=== PATIENT | female | born 1945 | race Caucasian/White ===

== ENCOUNTER → 2017-04-20 | Outpatient (CLI) | payer MEDICARE ==
[~2017-04-20] MED LIST: ACCUPRIL20 MG PO; ADVAIR DISKUS 21 DSK IH; AMOXIL500 MG PO; BENTYL20 MG PO; CARBATROL100 MG PO; CARDIZEM60 MG PO; CIPRO500 MG PO; CLARITIN10 MG PO; COLACE100 MG PO; EPI-PEN1 MG/ML SC; GUAIFENESIN DM PO; IBU-6600 MG PO; MIRALAX17 GM/PACK PO; MULTIVITAMIN1 TA1 PO; MULTIVITAMIN1 TAB PO; PERCOCET 325 MG1 TA2 PO; PROTONIX40 MG PO; Phenergan25 MG PO; Quinapril10 MG PO; REGLAN PO; SPIRIVA18 MCG IH; TRAMADOL HCL50 MG PO; VENTOLIN 02.5 MG/3 M INH; VENTOLIN H0.09 MG/AC PO; VITAMIN D1000 IU PO; VITAMIN D50000 I2 PO; ZOFRAN ODT4 MG SL
== END | disposition home or self-care (01) ==
LOC: RAD 11:48
DX: M53.3 Sacrococcygeal disorders, not elsewhere classified (principal); Z85.42 Personal history of malignant neoplasm of other parts of uterus; Z85.118 Personal history of other malignant neoplasm of bronchus and lung; Z85.828 Personal history of other malignant neoplasm of skin; Z85.841 Personal history of malignant neoplasm of brain

== ENCOUNTER → 2017-08-15 | Outpatient (CLI) | payer MEDICARE | END | disposition home or self-care (01) | LOC: MAMMO 06-18 12:00 | DX: Z12.31 Encounter for screening mammogram for malignant neoplasm of breast (principal) ==

== ENCOUNTER → 2017-12-17 | Outpatient (CLI) | payer MEDICARE ==
[2017-12-17 11:13] LABS: BASO % 0.2 % (0.0-1.0); EOS # 0.1 10*3/uL (0.0-0.4); EOS % 0.6 % (1.0-4.0); HEMATOCRIT 48.1 % (37.0-47.0); LYMPH # 1.2 10*3/uL (1.3-4.4); LYMPH % 11.8 % (27.0-41.0); MEAN CELL VOLUME 91.6 fl (81.0-99.0); MEAN CORPUSCULAR HGB 30.5 pg (27.0-31.0); MEAN CORPUSCULAR HGB CONC 33.3 g/dl (33.0-37.0); MEAN PLATELET VOLUME 9.3 fl (9.6-12.3); MONO # 0.9 10*3/uL (0.1-1.0); MONO % 8.5 % (3.0-9.0); NEUT # 7.9 10*3/uL (2.3-7.9); NEUT % 78.3 % (47.0-73.0); PLATELET COUNT AUTOMATED 280 10*3/uL (130-400); RED BLOOD COUNT 5.25 10*6/uL (4.10-5.10); RED CELL DISTRI WIDTH 13.6 % (0-14.5)
[2017-12-17 11:39] LABS: ALBUMIN 3.3 gm/dl (3.1-4.5); BUN 13 mg/dl (7-24); CHLORIDE 102 mmol/L (98-107); CREATININE 0.84 mg/dL (0.55-1.02); POTASSIUM 3.5 mmol/L (3.5-5.1); SGOT/AST 22 IU/L (3-35); SGPT/ALT 44 U/L (12-78); SODIUM 141 mmol/L (136-145)
[2017-12-17 11:49] LABS: ALKALINE PHOSPHATASE 94 U/L (45-117)
[2017-12-17 12:38] LABS: VITAMIN D, 25-HYDROXY 21.4 ng/mL (30-100)
== END | disposition home or self-care (01) ==
LOC: LAB 10:25 → RAD 11:00
PROVIDERS: Internal Medicine
DX: Z13.820 Encounter for screening for osteoporosis (principal); G50.0 Trigeminal neuralgia; I10 Essential (primary) hypertension; E55.9 Vitamin D deficiency, unspecified; E53.8 Deficiency of other specified B group vitamins; Z78.0 Asymptomatic menopausal state; Z90.710 Acquired absence of both cervix and uterus; Z85.038 Personal history of other malignant neoplasm of large intestine; Z85.118 Personal history of other malignant neoplasm of bronchus and lung

== ENCOUNTER → 2018-04-26 | Outpatient (CLI) | payer MEDICARE ==
[2018-04-26 10:01] LABS: CREATININE 0.88 mg/dL (0.55-1.02)
== END | disposition home or self-care (01) ==
LOC: LAB 01:13 → MRI 01:13
PROVIDERS: Radiology Diagnostic Radiology
DX: D32.0 Benign neoplasm of cerebral meninges (principal); G44.1 Vascular headache, not elsewhere classified; G50.0 Trigeminal neuralgia

== ENCOUNTER → 2018-08-21 | Outpatient (CLI) | payer MEDICARE | END | disposition home or self-care (01) | LOC: MAMMO 08-06 15:16 | DX: Z12.31 Encounter for screening mammogram for malignant neoplasm of breast (principal) ==

== ENCOUNTER 2019-02-28 07:07 | Inpatient (IN) | payer MEDICARE, OTHER ==
[2019-02-25 09:58] VITALS: BP 138/56
[2019-02-28] VITALS (7 sets, daily range): BP systolic 92–149; BP diastolic 42–91
[~2019-02-28] VITALS: Ht 165.1 cm; Wt 70.6 kg
--- NOTE | ~2019-02-28 | PR ---
[place], [place] PROGRESS NOTE NAME: JAVAN ZARATE UNIT #: [id number] ROOM: 403 DOCTOR: MATT BONILLA MD BIRTHDATE: [birth year] DOS: 03/02/2019 PULMONARY PROGRESS NOTE SUBJECTIVE: The patient was noted comfortable at this time with gradual reduction of the cough. The shortness of breath has been improving. The patient was noted quite forgetful at this time and could not remember all the information that was asked. OBJECTIVE: VITAL SIGNS: Normal temperature, respiratory rate is 18, heart rate is 95, blood pressure is 119/61. Pulse oxygen saturation on 2 liters nasal cannula is 93% saturation. HEENT: Examination shows head was atraumatic. Eyes nonicterus. NECK: Supple. CARDIOVASCULAR SYSTEM: S1, S2 is audible. LUNGS: The patient was noted with still crackles and rhonchorous breathing in the left lower lung. There was no wheezing. ABDOMEN: Soft, nontender. Bowel sounds present. EXTREMITIES: The patient was noted without any acute edema, clubbing, or cyanosis. LABORATORY DATA: Culture of the bronchial washing was noted light growth of Klebsiella pneumoniae, which noted pansensitive organism. IMPRESSION: 1. The patient has been currently noted with acute tracheobronchitis, mucus impaction with exacerbation of chronic obstructive pulmonary disease. 2. History of lung cancer. PLAN OF THERAPY: Continuation of current plan of management at this time as in progress. Usual care, other supportive plan of treatment and therapies. The patient could not remember the exact allergy to the antibiotics, but LISTED ALLERGIES TO THE ZITHROMAX, LEVAQUIN, AND PENICILLIN. THE ONLY ANTIBIOTIC ALLERGY SHE REMEMBERED WAS PENICILLIN. Based on the current information, the patient was given a trial of IV Rocephin 1 gram today if no adverse reaction, could be considered home discharge on oral medications tomorrow on cephalosporins. Discontinue the vancomycin and IV Merrem. THE ALLERGY TO PENICILLIN REPORTED WAS JUST A SKIN RASH. [place], [place] PROGRESS NOTE NAME: JAVAN ZARATE UNIT #: [id number] ROOM: 403 DOCTOR: MATT BONILLA MD BIRTHDATE: [birth year] MATT HOFFMANN MD CM:PNTRANS [phone] MATT ARRIETA MD 03/03/19228 interface
--- NOTE | ~2019-02-28 | PROC NOTE ---
[place], [place] PROCEDURE NOTE NAME: JAVAN ZARATE UNIT #: [id number] ROOM: 403 DOCTOR: MATT BONILLA MD BIRTHDATE: [birth year] DOS: 02/28/2019 PROCEDURE: Bronchoscopy. PREOPERATIVE DIAGNOSES: The bronchoscopy done as an outpatient for the assessment of nonresolving cough with abnormal CT chest with a severe mucus impaction in the major airways. POSTOPERATIVE DIAGNOSES: The patient with severe purulent tracheobronchitis was also noted ongoing with severe inflammatory changes of the airway with a friable mucosa. COMPLICATIONS: None. PROCEDURE DESCRIPTION: Informed consent obtained for the patient. The patient brought to the OR and placed in the supine position. Conscious sedation administered by the Anesthesia Department. After achieving proper sedation, the airway introduced into the mouth. Bronchoscope advanced through the airway into laryngeal area. Epiglottis and vocal cords were seen. Vocal cord moving symmetrical movements. Bronchoscope advanced to the vocal cords into the tracheal lumen. The tracheal lumen was identified. Tracheal lumen was seen and noted full of thick green purulent secretion starting after the vocal cord throughout the tracheal lumen. Secretions suctioned out. Hollie noted sharp. Right upper, right middle, right lower, left upper, and lingular lobe was seen. The patient noted with similar secretions has present in the tracheal lumen in the endobronchial tree bilaterally, greater on the left than the right side with severe friability of mucosa easy to bleed with the touch of the scope. The secretions cleared out from the endobronchial tree successfully without difficulty. No endobronchial obstructive lesions were seen. The procedure was completed without any complication. After the bronchoscopy, the patient was decided to be admitted to the hospital because of severe ongoing acute tracheobronchitis with COPD and further medical management to be continued accordingly. The postoperative findings were discussed with the patient in the recovery room as the patient recovered the effects of acute sedation and with the as well in the recovery room. The patient and both were agreeable for admission to the hospital. Case was discussed with Dr. Pugh for inpatient hospitalization for further care. [place], [place] PROCEDURE NOTE NAME: JAVAN ZARATE UNIT #: [id number] ROOM: 403 DOCTOR: MATT BONILLA MD BIRTHDATE: [birth year] MATT HOFFMANN MD CM:YAZMIN:PROCEDURE NOTE [id number] MATT ARRIETA MD
--- NOTE | ~2019-02-28 | CON ---
[place], [place] REPORT OF CONSULTATION NAME: JAVAN ZARATE UNIT #: [id number] ROOM: 403 DOCTOR: MATT BONILLA MD BIRTHDATE: [birth year] DOS: 02/28/2019 PULMONARY CONSULTATION, EVALUATION, AND MANAGEMENT HISTORY OF PRESENT ILLNESS: This is a 73-year-old white female patient, seen in my office on 02/24/2019 on recommendation of her medical oncologist from [facility] for assessment of abnormal CT scan of the chest. The patient had abnormal CT scan of the chest completed recently. She brought me the copy, reviewed as well. The patient reported having symptoms of ongoing productive and nonproductive cough as well as shortness of breath occurring with exertion and progressive fatigue. The patient's symptoms have been noted worsening and not resolving. Denies symptoms of chest pain. The patient has been assessed and review of CT scan was performed. She has been noted with findings consistent with severe COPD from a pulmonary function testing done at the [facility] and performed in the office as well as well as severe mucus impaction noted in the left lower lung with mucocele formation. The patient was advised bronchoscopy that was completed today. The bronchoscopy done was noted with severe ongoing purulent tracheobronchitis with copious amount of secretion removed from endobronchial tree. The patient was then brought to the hospital. The patient was admitted to the hospital for further care at this time. The patient has expectorated small amount of sputum, which was mixed with bloody secretion after the bronchoscopy. Denies any symptoms of chest pain. Shortness of breath occurs with exertion. Denies symptoms of wheezing at the present time. REVIEW OF SYSTEMS: CONSTITUTIONAL: Fatigue and tiredness reported. Denies symptoms of fever or chills. EYES: Denies any burning, redness, or tenderness. EARS, NOSE, THROAT SYMPTOMS: Denies sore throat, hoarseness, otalgia, postnasal drainage or epistaxis. CARDIOVASCULAR: Denies anginal pain, edema or pain of lower extremities. GASTROINTESTINAL: Denies dysphagia, nausea, vomiting, diarrhea, abdominal pain, hematemesis, melena, or hematochezia. SKIN: Denies abnormal lesions or rashes. CENTRAL NERVOUS SYSTEM: Denies dizziness, headache, diplopia, syncopal episodes. Remaining systems were reviewed, they were noted all negative. PAST MEDICAL HISTORY: 1. Severe COPD. 2. History of lung cancer. 3. History of uterine cancer. 4. History of colon cancer. 5. Allergic rhinitis. 6. Essential hypertension. PAST SURGICAL HISTORY: 1. Left lower lobectomy that was done in 2004. [place], [place] REPORT OF CONSULTATION NAME: JAVAN ZARATE UNIT #: [id number] ROOM: 403 [facility] [birth year] 2. Ablation treatment for the right lung nodule in May 2016. 3. Complete hysterectomy in 1977. 4. Mediastinoscopy. 5. Laparoscopic cholecystectomy. 6. Left knee arthroscopy. 7. Bilateral oophorectomy. 8. Partial colectomy with chemotherapy in 2012. SOCIAL HISTORY: The patient is . She has 2 children. She lives at home. Denies history of alcohol use or illicit drug use. Tobacco use known from the age of [age] years old, one pack of cigarettes, until 2004. FAMILY HISTORY: The patient's father at the age of 51 years from complication of aspergillosis. Mother at the age of 90 years from natural causes. HOME MEDICATIONS: Noted as Flonase, Incruse Ellipta, Singulair, Advair, cetirizine, Ventolin, and albuterol sulfate nebulizer. DRUG ALLERGIES: THE PATIENT WAS NOTED ALLERGIC TO: 1. PENICILLIN. 2. ERYTHROMYCIN. 3. LEVAQUIN. PHYSICAL EXAMINATION: GENERAL: A 73-year-old female patient, currently noted to be awake and alert without any distress. Height of 5 feet 5 inches, weight of 155 pounds, BMI is 25. VITAL SIGNS: Normal temperature, respiratory rate of 18-24, heart rate 82-77, blood pressure 110/42 to 141/50. Pulse oxygen saturation at rest on room air was 90%, on 2 liters was 96% saturation. HEENT: Head was atraumatic, eyes nonicterus. NECK: Supple. CARDIOVASCULAR: S1 and S2 audible. LUNGS: The patient with decreased breath sounds and occasional wheezing. No crackles except at the left lung base. ABDOMEN: Soft, nontender. Bowel sounds present. EXTREMITIES: Without any acute edema. MUSCULOSKELETAL: Without acute deformities. CENTRAL NERVOUS SYSTEM: Cranial nerves 2-12 intact. LABORATORY AND DIAGNOSTIC DATA: CBC today: WBC count 6.8, hemoglobin and hematocrit normal, platelet count normal. CMP of this morning, normal BUN and creatinine, CO2 was 35. Chest x-ray shows hyperinflation of the lungs, volume loss on the left side from back surgery, hyperinflation of the right lung which is compensatory, and expanded right upper lobe was seen. Lactic acid was 0.7. IMPRESSION: 1. The patient has been currently admitted to the hospital, noted with severe acute purulent tracheobronchitis with mucus impaction, status post bronchoscopy. [place], [place] REPORT OF CONSULTATION NAME: JAVAN ZARATE UNIT #: [id number] ROOM: 403 DOCTOR: SHUN ARRIETA MD,MATT BIRTHDATE: [birth year] 2. Acute exacerbation of chronic obstructive pulmonary disease, which was noted as well. 3. Metabolic alkalosis with chronic hypercarbia. 4. History of three different cancers known including lung cancer which has been treated with surgery and ablation treatment. The patient also has known history of uterine cancer, treated with surgery. The patient had cancer of the colon with colectomy, which was partial, and treated with chemotherapy subsequently in 2012. PLAN OF MANAGEMENT: The patient will be started on antibiotics intravenously at this time until the culture results will be known. She will be given intravenous Merrem until the culture results will be known. Bronchodilator will be continued and oxygen supplementation as well. Bronchodilator and other treatment changes will be made for this patient based on the progression of the illness. Usual care. Supportive care and plan of management as in progress. Additional treatment changes will be ordered based on the progression of the illness. Thanks for allowing me to participate in the care of this patient. MATT HOFFMANN MD CM:CONSTR:REPORT OF CONSULTATION 1321 03/01/19 0607 interface
--- NOTE | ~2019-02-28 | PR ---
[place], [place] PROGRESS NOTE NAME: JAVAN ZARATE UNIT #: [id number] ROOM: 403 DOCTOR: SHUN ARRIETA MD,MATT BIRTHDATE: [birth year] DOS: 03/03/2019 PULMONARY PROGRESS NOTE SUBJECTIVE: The patient was noted comfortable at this time without any acute distress. Coughing has been subsiding. There were no symptoms of fever or chills reported. Shortness of breath has been improving. OBJECTIVE: VITAL SIGNS: The vital signs of the patient, which were recorded shows normal temperature, respiratory rate is 16, heart rate is 88, blood pressure is 124/64, and pulse oxygen saturation was recorded as 97% on 2 liters nasal cannula. HEENT: Examination shows head was atraumatic. Eyes nonicterus. NECK: Supple. CARDIOVASCULAR SYSTEM: S1, S2 is audible. LUNGS: Noted without any wheeze or crackles. The breaths are noted decreased in the left lower lung. ABDOMEN: Soft, nontender. Bowel sounds present. EXTREMITIES: No acute change. IMPRESSION: 1. Resolving acute tracheobronchitis. 2. Klebsiella pneumonia, received the IV Rocephin yesterday without any side effects. 3. The patient with acute exacerbation of chronic obstructive pulmonary disease as well. 4. Past history of lung cancer. PLAN OF TREATMENT: Switching the patient to oral cephalosporin for discharge for 10 days. She could receive Ceftin 500 mg p.o. b.i.d. She needs to be assessed for home oxygen need and to be prescribed in case of hypoxia determined. Outpatient followup is suggested 2 weeks post-discharge. MATT HOFFMANN MD CM:PNTRANS [id number] MATT ARRIETA MD 03/03/19 2342 interface
--- NOTE | ~2019-02-28 | EKG ---
[place], [place] ELECTROCARDIOGRAM REPORT NAME: JAVAN ZARATE UNIT #: [id number] ROOM: 403 DOCTOR: ROSIO DRAFT REPORT BIRTHDATE: [birth year] [facility] Test Date: 2019-02-28 Test Time: 12:41:18 Pat Name: JAVAN ZARATE Department: Room: 403 2 Gender: F [employer] Analyst: VERA : 1945 Requested By: ANTONIETA RABAGO Order Number: [id number] Reading MD: Baljeet John MD Measurements Intervals [place] Rate: 84 P: 81 MT: 158 QRS: 29 QRSD: 102 T: -64 QT: 369 QTc: 437 Interpretive Statements Sinus rhythm Probable LVH with secondary repol abnrm Inferior infarct, age indeterminate Anterior Q waves, possibly due to LVH Electronically Signed On 03-02-2019 17:38:19 PDT by Baljeet John MD CM:EKGRPT:ELECTROCARDIOGRAM REPORT [id number] ANTONIETA CACERES DRAFT REPORT ANTONIETA RABAGO DO
--- NOTE | ~2019-02-28 | PR ---
[place], [place] PROGRESS NOTE NAME: JAVAN ZARATE UNIT #: [id number] ROOM: 403 DOCTOR: SHUN ARRIETA MD,MATT BIRTHDATE: [birth year] DOS: 03/01/2019 PULMONARY PROGRESS NOTE SUBJECTIVE: The patient noted comfortable at this time, resting on the bed this morning. Still noted the coughing. The patient's chest congestion was noted decreased from previous assessment of yesterday. Denies symptoms of acute hemoptysis. Denies symptoms of fever or chills. Denies symptoms of nausea and vomiting. Continue broad-spectrum intravenous antibiotic as well with suspected severe tracheobronchitis, which was bacterial. The patient's energy level noted somewhat better in the last 24 hours, using oxygen supplementation this morning of assessment. Denies any symptoms of abdominal pain, nausea, vomiting, or diarrhea. Remaining systems were reviewed and they were noted all negative. PHYSICAL EXAMINATION: VITAL SIGNS: Normal temperature, respiratory rate of 18, heart rate of 91, and blood pressure of 113/56. Pulse ox saturation on 2 liters nasal cannula 96% saturation recorded. HEENT: On examination, no acute change. NECK: Supple. CARDIOVASCULAR SYSTEM: S1, S2 is audible. LUNGS: The patient was noted with decreased breath sounds Crackles was noted. Rhonchorous breathing in the left lower lung. ABDOMEN: Soft, nontender. Bowel sounds present. EXTREMITIES: No acute changes. MUSCULOSKELETAL Without any acute deformity. CENTRAL NERVOUS SYSTEM: Cranial nerves 2-12 intact. LABORATORY DATA : Culture of the bronchial washing noted light growth of gram-negative bacilli, pending identification sensitivities. Gram stain of the bronchial washing yesterday, many white blood cells, few epithelial cells, moderate gram-positive cocci in pairs and chains, and few gram-positive cocci in clusters. Troponins, which were done yesterday were noted all normal. BMP this morning, glucose of 151, BUN of 13, creatinine were normal. LFTs normal. CBC this morning was noted as normal. IMPRESSION: The patient has been currently noted with acute tracheobronchitis, exacerbation of chronic obstructive pulmonary disease was noted with reduction of the respiratory symptoms in the last 24 hours with intravenous antibiotics. Gram-negative infection, preliminary, reported in the culture of the final results, is still pending at the present time. PLAN OF THERAPY: Continuation of the current antibiotics, bronchodilator. No changes in the treatment. Discharge planning based on the culture results. The patient's oral or intravenous antibiotic route to be determined. Continuation of the corticosteroids, current dose, and bronchodilators as well as the oxygen supplementation as needed. Usual care, other supportive plan of management. Additional treatment changes will be made based on the progression of the illness. [place], [place] PROGRESS NOTE NAME: ELLIOTJAVAN NAIMA UNIT #: [id number] ROOM: [facility] DOCTOR: MATT BONILLA MD BIRTHDATE: [birth year] MATT HOFFMANN MD CM:PNTRANS [id number] MATT ARRIETA MD 03/02/19 0627 interface
[~2019-02-28 07:07] MED LIST changes: +INCRUSE ELLI62.5 MCG INH
[2019-02-28 11:26] LABS: BASO % 0.1 % (0.0-1.0); EOS % 0.4 % (1.0-4.0); HEMATOCRIT 43.6 % (37.0-47.0); HEMOGLOBIN 13.4 g/dl (12.0-16.0); LYMPH # 1.1 10*3/uL (1.3-4.4); LYMPH % 15.4 % (27.0-41.0); MEAN CELL VOLUME 94.6 fl (81.0-99.0); MEAN CORPUSCULAR HGB 29.1 pg (27.0-31.0); MEAN CORPUSCULAR HGB CONC 30.7 g/dl (33.0-37.0); MEAN PLATELET VOLUME 9.2 fl (9.6-12.3); MONO # 0.7 10*3/uL (0.1-1.0); MONO % 10.4 % (3.0-9.0); NEUT % 73.4 % (47.0-73.0); PLATELET COUNT AUTOMATED 154 10*3/uL (130-400); RED BLOOD COUNT 4.61 10*6/uL (4.10-5.10); RED CELL DISTRI WIDTH 13.5 % (0-14.5); WHITE BLOOD COUNT 6.8 10*3/uL (4.8-10.8)
[2019-02-28 12:01] LABS: ALBUMIN 2.9 gm/dl (3.1-4.5); ALKALINE PHOSPHATASE 100 U/L (45-117); BUN 11 mg/dl (7-24); CHLORIDE 103 mmol/L (98-107); CREATININE 0.86 mg/dL (0.55-1.02); POTASSIUM 3.8 mmol/L (3.5-5.1); SGOT/AST 13 IU/L (3-35); SGPT/ALT 13 U/L (12-78); SODIUM 141 mmol/L (136-145); TOTAL PROTEIN 7.2 gm/dL (6.4-8.2); TROPONIN I 0.022 ng/ml (<0.045)
[2019-02-28] MEDS ORDERED: CARBAMAZEPINE100 M1 PO (12:33)
[2019-02-28 16:34] LABS: BILIRUBIN NEGATIVE (NEGATIVE); BLOOD NEGATIVE (NEGATIVE); CLARITY CLEAR (CLEAR); COLOR YELLOW (YELLOW); GLUCOSE NEGATIVE (NEGATIVE); KETONE NEGATIVE (NEGATIVE); LEUKO ESTERASE NEGATIVE (NEGATIVE); NITRITE NEGATIVE (NEGATIVE); PH 6.5 (5.0-9.0); SPECIFIC GRAVITY 1.015 (1.005-1.030); UROBILINOGEN 0.2 E.U./dl (0.2-1.0)
[2019-02-28 16:42] LABS: BACTERIA TRACE; MUCOUS 1+; WBC 0-2 wbc/hpf (0-5)
[2019-03-01] VITALS: BP 110/57
[2019-03-01 06:22] LABS: HEMATOCRIT 44.5 % (37.0-47.0); HEMOGLOBIN 13.7 g/dl (12.0-16.0); MEAN CELL VOLUME 95.1 fl (81.0-99.0); MEAN CORPUSCULAR HGB 29.3 pg (27.0-31.0); MEAN CORPUSCULAR HGB CONC 30.8 g/dl (33.0-37.0); PLATELET COUNT AUTOMATED 159 10*3/uL (130-400); RED BLOOD COUNT 4.68 10*6/uL (4.10-5.10); RED CELL DISTRI WIDTH 13.4 % (0-14.5); WHITE BLOOD COUNT 7.9 10*3/uL (4.8-10.8)
[2019-03-01 06:55] LABS: BUN 13 mg/dl (7-24); CHLORIDE 104 mmol/L (98-107); CHOLESTEROL 155 mg/dL (<200); CREATININE 0.86 mg/dL (0.55-1.02); POTASSIUM 4.6 mmol/L (3.5-5.1); SODIUM 139 mmol/L (136-145); TRIGLYCERIDES 37 mg/dl (<150); VLDL CHOLESTEROL 7 mg/dL (6-40)
[2019-03-01 06:56] LABS: HDL CHOLESTEROL 82 mg/dl (40-60); LDL CHOLESTEROL 66 mg/dL (9-159); PHOSPHOROUS 3.7 mg/dL (2.5-4.9)
[2019-03-01 07:17] LABS: ATYPICAL LYMPHS 1 % (0-0); PLATELET SUFFICIENCY NORMAL (NORMAL); TOTAL CELLS COUNTED 100 #CELLS
[2019-03-01 07:40] LABS: VITAMIN D, 25-HYDROXY 35.3 ng/mL (30-100)
[2019-03-01 09:56] VITALS: BP 102/50
[2019-03-01 12:00] VITALS: BP 113/56
[2019-03-01 12:04] LABS: ACID FAST SPEC PROCESSING Concentration (.)
[2019-03-01 16:00] VITALS: BP 112/60
[2019-03-01 20:00] VITALS: BP 109/64
[2019-03-02] VITALS: BP 121/55
[2019-03-02 06:17] LABS: HEMATOCRIT 43.4 % (37.0-47.0); HEMOGLOBIN 13.2 g/dl (12.0-16.0); MEAN CELL VOLUME 95.6 fl (81.0-99.0); MEAN CORPUSCULAR HGB 29.1 pg (27.0-31.0); MEAN CORPUSCULAR HGB CONC 30.4 g/dl (33.0-37.0); MEAN PLATELET VOLUME 9.9 fl (9.6-12.3); PLATELET COUNT AUTOMATED 168 10*3/uL (130-400); RED BLOOD COUNT 4.54 10*6/uL (4.10-5.10); RED CELL DISTRI WIDTH 13.5 % (0-14.5); WHITE BLOOD COUNT 14.5 10*3/uL (4.8-10.8)
[2019-03-02 06:39] LABS: ALBUMIN 2.7 gm/dl (3.1-4.5); ALKALINE PHOSPHATASE 91 U/L (45-117); CHLORIDE 102 mmol/L (98-107); POTASSIUM 4.9 mmol/L (3.5-5.1); SGOT/AST 9 IU/L (3-35); SGPT/ALT 11 U/L (12-78); SODIUM 138 mmol/L (136-145); TOTAL PROTEIN 7.3 gm/dL (6.4-8.2)
[2019-03-02 06:46] LABS: BUN 25 mg/dl (7-24); PLATELET SUFFICIENCY NORMAL (NORMAL); TOTAL CELLS COUNTED 100 #CELLS
[2019-03-02 08:00] VITALS: BP 119/61
[2019-03-02 12:00] VITALS: BP 123/56
[2019-03-02 16:00] VITALS: BP 129/64
[2019-03-02 20:00] VITALS: BP 130/71
[2019-03-03 00:58] VITALS: BP 127/62
[2019-03-03 06:48] LABS: HEMATOCRIT 42.9 % (37.0-47.0); HEMOGLOBIN 13.1 g/dl (12.0-16.0); MEAN CELL VOLUME 94.9 fl (81.0-99.0); MEAN CORPUSCULAR HGB CONC 30.5 g/dl (33.0-37.0); MEAN PLATELET VOLUME 9.8 fl (9.6-12.3); PLATELET COUNT AUTOMATED 181 10*3/uL (130-400); RED BLOOD COUNT 4.52 10*6/uL (4.10-5.10); RED CELL DISTRI WIDTH 13.7 % (0-14.5); WHITE BLOOD COUNT 11.9 10*3/uL (4.8-10.8)
[2019-03-03 07:19] LABS: ALBUMIN 2.6 gm/dl (3.1-4.5); BUN 33 mg/dl (7-24); CHLORIDE 103 mmol/L (98-107); CREATININE 0.96 mg/dL (0.55-1.02); POTASSIUM 4.7 mmol/L (3.5-5.1); SGOT/AST 30 IU/L (3-35); SGPT/ALT 32 U/L (12-78); SODIUM 139 mmol/L (136-145)
[2019-03-03 07:20] LABS: TOTAL CELLS COUNTED 100 #CELLS
[2019-03-03 07:21] LABS: ALKALINE PHOSPHATASE 88 U/L (45-117); PLATELET SUFFICIENCY NORMAL (NORMAL); TOTAL PROTEIN 7.2 gm/dL (6.4-8.2)
[2019-03-03 08:00] VITALS: BP 124/64; BP 126/64
[2019-03-03] MEDS ORDERED: PREDNISONE10 MG PO (10:36)
[2019-03-03] MEDS ORDERED: AMINOPHYLLIN200 MG PO (10:36)
[2019-03-03] MEDS ORDERED: MUCINEX ER600 MG PO (10:36)
[2019-04-07 12:04] LABS: ACID FAST CULTURE Negative (.)
== END 2019-03-03 11:28 | disposition home or self-care (01) | DRG 871 ==
LOC: SDC 07:07 → 4E 09:22
PROVIDERS: Emergency Medicine; Internal Medicine Critical Care Medicine; Student in an Organized Health Care Education/Training Program; ADMIT Internal Medicine
PROC: 0BC98ZZ Extirpation of Matter from Lingula Bronchus, Via Natural or Artificial Opening Endoscopic (ICD-10-PCS; principal; 2019-02-28)
PROC: 0BCB8ZZ Extirpation of Matter from Left Lower Lobe Bronchus, Via Natural or Artificial Opening Endoscopic (ICD-10-PCS; principal; 2019-02-28)
PROC: 0BC18ZZ Extirpation of Matter from Trachea, Via Natural or Artificial Opening Endoscopic (ICD-10-PCS; principal; 2019-02-28)
PROC: 0BC58ZZ Extirpation of Matter from Right Middle Lobe Bronchus, Via Natural or Artificial Opening Endoscopic (ICD-10-PCS; principal; 2019-02-28)
PROC: 0BC78ZZ Extirpation of Matter from Left Main Bronchus, Via Natural or Artificial Opening Endoscopic (ICD-10-PCS; principal; 2019-02-28)
PROC: 0BC48ZZ Extirpation of Matter from Right Upper Lobe Bronchus, Via Natural or Artificial Opening Endoscopic (ICD-10-PCS; principal; 2019-02-28)
PROC: 0BC38ZZ Extirpation of Matter from Right Main Bronchus, Via Natural or Artificial Opening Endoscopic (ICD-10-PCS; principal; 2019-02-28)
PROC: 0BC68ZZ Extirpation of Matter from Right Lower Lobe Bronchus, Via Natural or Artificial Opening Endoscopic (ICD-10-PCS; principal; 2019-02-28)
PROC: 0BC88ZZ Extirpation of Matter from Left Upper Lobe Bronchus, Via Natural or Artificial Opening Endoscopic (ICD-10-PCS; principal; 2019-02-28)
DX: A41.9 Sepsis, unspecified organism (principal); J15.0 Pneumonia due to Klebsiella pneumoniae; E44.0 Moderate protein-calorie malnutrition; J44.1 Chronic obstructive pulmonary disease with (acute) exacerbation; T17.590A Other foreign object in bronchus causing asphyxiation, initial encounter; J96.11 Chronic respiratory failure with hypoxia; E87.3 Alkalosis; J96.12 Chronic respiratory failure with hypercapnia; J20.9 Acute bronchitis, unspecified; I10 Essential (primary) hypertension; X58.XXXA Exposure to other specified factors, initial encounter; Y93.89 Activity, other specified; Y92.89 Other specified places as the place of occurrence of the external cause; Y99.8 Other external cause status; Z87.891 Personal history of nicotine dependence; Z85.118 Personal history of other malignant neoplasm of bronchus and lung; Z92.21 Personal history of antineoplastic chemotherapy; Z92.3 Personal history of irradiation; Z85.038 Personal history of other malignant neoplasm of large intestine; Z90.49 Acquired absence of other specified parts of digestive tract; Z90.722 Acquired absence of ovaries, bilateral; Z83.1 Family history of other infectious and parasitic diseases; Z88.1 Allergy status to other antibiotic agents; Z91.030 Bee allergy status; Z88.0 Allergy status to penicillin; Z91.048 Other nonmedicinal substance allergy status; Z79.899 Other long term (current) drug therapy; Z85.42 Personal history of malignant neoplasm of other parts of uterus; Z90.710 Acquired absence of both cervix and uterus; Z68.25 Body mass index [BMI] 25.0-25.9, adult

== ENCOUNTER → 2019-10-20 | Outpatient (CLI) | payer MEDICARE, OTHER ==
[~2019-10-20] MED LIST changes: +AMINOPHYLLIN200 MG PO; +CARBAMAZEPINE100 M1 PO; +MUCINEX ER600 MG PO; +PREDNISONE10 MG PO
[2019-10-20 11:24] LABS: CREATININE 1.06 mg/dL (0.55-1.02)
== END | disposition home or self-care (01) ==
LOC: LAB 01:03 → MRI 01:03
PROVIDERS: Radiology Diagnostic Radiology
DX: G30.0 Alzheimer's disease with early onset (principal); M79.2 Neuralgia and neuritis, unspecified

== ENCOUNTER → 2020-01-05 | Outpatient (CLI) | payer MEDICARE, OTHER ==
[2020-01-05 11:22] LABS: BASO % 0.2 % (0.0-1.0); EOS # 0.1 10*3/uL (0.0-0.4); EOS % 1.4 % (1.0-4.0); HEMATOCRIT 45.8 % (37.0-47.0); HEMOGLOBIN 13.9 g/dl (12.0-16.0); LYMPH # 1.2 10*3/uL (1.3-4.4); LYMPH % 19.5 % (27.0-41.0); MEAN CELL VOLUME 95.6 fl (81.0-99.0); MEAN CORPUSCULAR HGB CONC 30.3 g/dl (33.0-37.0); MEAN PLATELET VOLUME 9.3 fl (9.6-12.3); MONO # 0.6 10*3/uL (0.1-1.0); MONO % 9.5 % (3.0-9.0); NEUT # 4.4 10*3/uL (2.3-7.9); NEUT % 69.1 % (47.0-73.0); PLATELET COUNT AUTOMATED 204 10*3/uL (130-400); RED BLOOD COUNT 4.79 10*6/uL (4.10-5.10); RED CELL DISTRI WIDTH 13.7 % (0-14.5); WHITE BLOOD COUNT 6.3 10*3/uL (4.8-10.8)
[2020-01-05 11:48] LABS: BUN 16 mg/dl (7-24); CHLORIDE 105 mmol/L (98-107); CREATININE 0.89 mg/dL (0.55-1.02); POTASSIUM 3.9 mmol/L (3.5-5.1); SODIUM 143 mmol/L (136-145)
[2020-01-05 11:54] LABS: ACT PARTIAL THROMBO TIME 28.2 SECONDS (20.0-32.1)
== END | disposition home or self-care (01) ==
LOC: LAB 10:46
DX: G50.0 Trigeminal neuralgia (principal); J98.11 Atelectasis; J98.6 Disorders of diaphragm; Z79.01 Long term (current) use of anticoagulants

== ENCOUNTER → 2020-01-22 | Outpatient (CLI) | payer MEDICARE, OTHER | END | disposition home or self-care (01) | LOC: CARD 00:36 | DX: Z01.810 Encounter for preprocedural cardiovascular examination (principal); I08.3 Combined rheumatic disorders of mitral, aortic and tricuspid valves; R94.31 Abnormal electrocardiogram [ECG] [EKG]; R01.1 Cardiac murmur, unspecified ==

== ENCOUNTER → 2020-02-12 | Outpatient (CLI) | payer MEDICARE, OTHER | END | disposition home or self-care (01) | LOC: LAB 11:56 | DX: R05 Cough (principal) ==

== ENCOUNTER → 2020-07-22 | Outpatient (CLI) | payer MEDICARE, OTHER | END | disposition home or self-care (01) | LOC: LAB 13:41 | PROVIDERS: ATTEND Nurse Practitioner Family | DX: G50.0 Trigeminal neuralgia (principal) ==

== ENCOUNTER → 2020-07-26 | Outpatient (CLI) | payer MEDICARE, OTHER | END | disposition home or self-care (01) | LOC: MAMMO 10:41 | PROVIDERS: ATTEND Nurse Practitioner Family | DX: Z12.31 Encounter for screening mammogram for malignant neoplasm of breast (principal) ==

== ENCOUNTER → 2020-08-09 | Outpatient (CLI) | payer MEDICARE, OTHER ==
[2020-08-09 09:05] LABS: BASO % 0.3 % (0.0-1.0); EOS # 0.1 10*3/uL (0.0-0.4); HEMATOCRIT 47.8 % (37.0-47.0); LYMPH # 1.4 10*3/uL (1.3-4.4); LYMPH % 17.1 % (27.0-41.0); MEAN CELL VOLUME 93.5 fl (81.0-99.0); MEAN CORPUSCULAR HGB 29.4 pg (27.0-31.0); MEAN CORPUSCULAR HGB CONC 31.4 g/dl (33.0-37.0); MEAN PLATELET VOLUME 9.6 fl (9.6-12.3); MONO # 0.8 10*3/uL (0.1-1.0); MONO % 9.4 % (3.0-9.0); NEUT # 5.8 10*3/uL (2.3-7.9); NEUT % 71.8 % (47.0-73.0); PLATELET COUNT AUTOMATED 209 10*3/uL (130-400); RED BLOOD COUNT 5.11 10*6/uL (4.10-5.10); RED CELL DISTRI WIDTH 13.3 % (0-14.5)
[2020-08-09 09:28] LABS: BUN 11 mg/dl (7-24); CHLORIDE 103 mmol/L (98-107); CREATININE 0.95 mg/dL (0.55-1.02); POTASSIUM 3.5 mmol/L (3.5-5.1); SODIUM 139 mmol/L (136-145)
[2020-08-09 09:37] LABS: ACT PARTIAL THROMBO TIME 30.1 SECONDS (20.0-32.1)
== END | disposition home or self-care (01) ==
LOC: LAB 08:25
PROVIDERS: ATTEND Physician Assistant
DX: G50.0 Trigeminal neuralgia (principal); D68.9 Coagulation defect, unspecified

== ENCOUNTER 2020-08-28 08:39 | Emergency (ER) | payer MEDICARE, OTHER ==
[~2020-08-28] VITALS: Ht 165.1 cm; Wt 68.0 kg
[2020-08-28 09:23] VITALS: BP 150/74
[2020-08-28 09:30] LABS: BASO % 0.2 % (0.0-1.0); EOS % 0.1 % (1.0-4.0); HEMATOCRIT 38.6 % (37.0-47.0); LYMPH # 1.3 10*3/uL (1.3-4.4); LYMPH % 10.5 % (27.0-41.0); MEAN CELL VOLUME 97.2 fl (81.0-99.0); MEAN CORPUSCULAR HGB 29.2 pg (27.0-31.0); MEAN CORPUSCULAR HGB CONC 30.1 g/dl (33.0-37.0); MEAN PLATELET VOLUME 9.7 fl (9.6-12.3); MONO # 1.3 10*3/uL (0.1-1.0); MONO % 10.3 % (3.0-9.0); NEUT % 78.4 % (47.0-73.0); PLATELET COUNT AUTOMATED 148 10*3/uL (130-400); RED BLOOD COUNT 3.97 10*6/uL (4.10-5.10); RED CELL DISTRI WIDTH 13.2 % (0-14.5); WHITE BLOOD COUNT 12.8 10*3/uL (4.8-10.8)
[2020-08-28 09:43] LABS: ACT PARTIAL THROMBO TIME 28.1 SECONDS (20.0-32.1)
[2020-08-28 09:48] LABS: ALBUMIN 2.8 gm/dl (3.1-4.5); ALKALINE PHOSPHATASE 98 U/L (45-117); BUN 19 mg/dl (7-24); CHLORIDE 104 mmol/L (98-107); CREATININE 0.94 mg/dL (0.55-1.02); POTASSIUM 3.8 mmol/L (3.5-5.1); SGOT/AST 9 IU/L (3-35); SGPT/ALT 11 U/L (12-78); SODIUM 139 mmol/L (136-145); TOTAL PROTEIN 7.1 gm/dL (6.4-8.2)
== END 2020-08-28 09:58 | disposition short-term general hospital (02) ==
LOC: ED 08:39
PROVIDERS: Emergency Medicine
DX: S06.5X9A Traumatic subdural hemorrhage with loss of consciousness of unspecified duration, initial encounter (principal); I48.20 Chronic atrial fibrillation, unspecified; I10 Essential (primary) hypertension; Z88.8 Allergy status to other drugs, medicaments and biological substances; Z88.0 Allergy status to penicillin; Z91.030 Bee allergy status; Z79.899 Other long term (current) drug therapy; X58.XXXA Exposure to other specified factors, initial encounter; Y93.89 Activity, other specified; Y92.89 Other specified places as the place of occurrence of the external cause; Y99.8 Other external cause status

== ENCOUNTER → 2020-09-13 | Outpatient (CLI) | payer MEDICARE, OTHER | END | disposition home or self-care (01) | LOC: CT 01:47 | PROVIDERS: ATTEND Physician Assistant | DX: S06.5X9A Traumatic subdural hemorrhage with loss of consciousness of unspecified duration, initial encounter (principal); C34.90 Malignant neoplasm of unspecified part of unspecified bronchus or lung; C18.9 Malignant neoplasm of colon, unspecified; C34.31 Malignant neoplasm of lower lobe, right bronchus or lung; G50.9 Disorder of trigeminal nerve, unspecified; G50.0 Trigeminal neuralgia; J44.9 Chronic obstructive pulmonary disease, unspecified; X58.XXXA Exposure to other specified factors, initial encounter; Y93.89 Activity, other specified; Y92.89 Other specified places as the place of occurrence of the external cause; Y99.8 Other external cause status ==

== ENCOUNTER → 2020-10-14 | Outpatient (CLI) | payer MEDICARE, OTHER | END | disposition home or self-care (01) | LOC: COVID19 10:03 | PROVIDERS: ATTEND Nurse Practitioner Family | DX: U07.1 COVID-19 (principal) ==

== ENCOUNTER 2020-10-19 13:30 | Emergency (ER) | payer MEDICARE, OTHER ==
[~2020-10-19] VITALS: Ht 165.1 cm; Wt 68.0 kg
[2020-10-19 13:37] VITALS: BP 111/67
[2020-10-19 14:35] LABS: BASO % 0.2 % (0.0-1.0); EOS % 0.5 % (1.0-4.0); LYMPH # 1.1 10*3/uL (1.3-4.4); LYMPH % 17.4 % (27.0-41.0); MEAN CELL VOLUME 93.3 fl (81.0-99.0); MEAN CORPUSCULAR HGB 28.6 pg (27.0-31.0); MEAN CORPUSCULAR HGB CONC 30.7 g/dl (33.0-37.0); MEAN PLATELET VOLUME 10.1 fl (9.6-12.3); MONO # 0.7 10*3/uL (0.1-1.0); MONO % 11.3 % (3.0-9.0); NEUT # 4.4 10*3/uL (2.3-7.9); NEUT % 70.3 % (47.0-73.0); PLATELET COUNT AUTOMATED 191 10*3/uL (130-400); RED BLOOD COUNT 4.61 10*6/uL (4.10-5.10); RED CELL DISTRI WIDTH 13.3 % (0-14.5); WHITE BLOOD COUNT 6.2 10*3/uL (4.8-10.8)
[2020-10-19 14:50] LABS: ACT PARTIAL THROMBO TIME 29.8 SECONDS (20.0-32.1)
[2020-10-19 14:54] LABS: CHLORIDE 110 mmol/L (98-107); POTASSIUM 3.4 mmol/L (3.5-5.1); SODIUM 145 mmol/L (136-145)
[2020-10-19 15:01] LABS: ALBUMIN 3.1 gm/dl (3.1-4.5); ALKALINE PHOSPHATASE 93 U/L (45-117); BUN 16 mg/dl (7-24); CPK 52 U/L (26-192); CREATININE 1.06 mg/dL (0.55-1.02); LDH 164 U/L (84-246); SGOT/AST 23 IU/L (3-35); SGPT/ALT 19 U/L (12-78); TOTAL PROTEIN 7.9 gm/dL (6.4-8.2)
[2020-10-19 15:06] LABS: TROPONIN I < 0.015 ng/ml (<0.045)
== END 2020-10-19 15:52 | disposition home or self-care (01) ==
LOC: ED 13:30
PROVIDERS: Family Medicine
DX: U07.1 COVID-19 (principal); Z88.0 Allergy status to penicillin; Z91.030 Bee allergy status; Z79.899 Other long term (current) drug therapy

== ENCOUNTER → 2020-10-26 | Outpatient (CLI) | payer MEDICARE, OTHER | END | disposition home or self-care (01) | LOC: LAB 10:29 | PROVIDERS: ATTEND Nurse Practitioner Family | DX: E87.6 Hypokalemia (principal) ==

== ENCOUNTER → 2020-10-29 | Outpatient (CLI) | payer MEDICARE, OTHER | END | disposition home or self-care (01) | LOC: CT 00:16 | PROVIDERS: ATTEND Physician Assistant | DX: S06.5X9A Traumatic subdural hemorrhage with loss of consciousness of unspecified duration, initial encounter (principal); G93.89 Other specified disorders of brain; X58.XXXA Exposure to other specified factors, initial encounter; Y93.89 Activity, other specified; Y92.89 Other specified places as the place of occurrence of the external cause; Y99.8 Other external cause status ==

== ENCOUNTER → 2020-11-16 | Outpatient (CLI) | payer MEDICARE, OTHER | END | disposition home or self-care (01) | LOC: RESCLI 10:55 | PROVIDERS: ATTEND Internal Medicine | DX: I10 Essential (primary) hypertension (principal); E55.9 Vitamin D deficiency, unspecified; J44.9 Chronic obstructive pulmonary disease, unspecified; I48.91 Unspecified atrial fibrillation; E78.5 Hyperlipidemia, unspecified; J30.2 Other seasonal allergic rhinitis; Z91.038 Other insect allergy status; Z79.899 Other long term (current) drug therapy; Z90.2 Acquired absence of lung [part of]; Z88.0 Allergy status to penicillin; Z91.030 Bee allergy status; Z91.048 Other nonmedicinal substance allergy status; Z88.8 Allergy status to other drugs, medicaments and biological substances; Z90.710 Acquired absence of both cervix and uterus ==

== ENCOUNTER → 2021-04-26 | Outpatient (CLI) | payer MEDICARE, OTHER | END | disposition home or self-care (01) | LOC: RESCLI 14:43 | PROVIDERS: ATTEND Internal Medicine | DX: G50.0 Trigeminal neuralgia (principal); E55.9 Vitamin D deficiency, unspecified; I10 Essential (primary) hypertension; J43.2 Centrilobular emphysema; J30.2 Other seasonal allergic rhinitis; I48.91 Unspecified atrial fibrillation; E78.5 Hyperlipidemia, unspecified; S81.801D Unspecified open wound, right lower leg, subsequent encounter; Z79.899 Other long term (current) drug therapy; Z90.49 Acquired absence of other specified parts of digestive tract; Z98.890 Other specified postprocedural states; Z90.710 Acquired absence of both cervix and uterus; Z88.8 Allergy status to other drugs, medicaments and biological substances; Z88.0 Allergy status to penicillin; X58.XXXD Exposure to other specified factors, subsequent encounter ==

== ENCOUNTER → 2021-05-10 | Outpatient (CLI) | payer MEDICARE, OTHER | END | disposition home or self-care (01) | LOC: RESCLI 05-06 08:21 | PROVIDERS: ATTEND Family Medicine | DX: J43.2 Centrilobular emphysema (principal); J30.2 Other seasonal allergic rhinitis; I48.91 Unspecified atrial fibrillation; E55.9 Vitamin D deficiency, unspecified; E78.5 Hyperlipidemia, unspecified; F41.9 Anxiety disorder, unspecified; Z91.038 Other insect allergy status; Z79.899 Other long term (current) drug therapy; Z88.0 Allergy status to penicillin; Z88.8 Allergy status to other drugs, medicaments and biological substances; Z98.890 Other specified postprocedural states; Z87.891 Personal history of nicotine dependence; Z90.49 Acquired absence of other specified parts of digestive tract; Z90.710 Acquired absence of both cervix and uterus ==

== ENCOUNTER 2021-06-16 09:43 | Inpatient (IN) | payer MEDICARE, OTHER ==
[2021-06-16] VITALS (9 sets, daily range): BP systolic 116–194; BP diastolic 70–101
[~2021-06-16] VITALS: Ht 165.1 cm; Wt 68.0 kg
[2021-06-16 10:23] LABS: BASO % 0.3 % (0.0-1.0); EOS % 0.1 % (1.0-4.0); HEMATOCRIT 46.3 % (37.0-47.0); LYMPH # 0.6 10*3/uL (1.3-4.4); LYMPH % 6.2 % (27.0-41.0); MEAN CELL VOLUME 98.9 fl (81.0-99.0); MEAN CORPUSCULAR HGB 28.4 pg (27.0-31.0); MEAN CORPUSCULAR HGB CONC 28.7 g/dl (33.0-37.0); MEAN PLATELET VOLUME 9.5 fl (9.6-12.3); MONO # 0.5 10*3/uL (0.1-1.0); MONO % 5.9 % (3.0-9.0); NEUT # 7.7 10*3/uL (2.3-7.9); NEUT % 85.8 % (47.0-73.0); PLATELET COUNT AUTOMATED 142 10*3/uL (130-400); RED BLOOD COUNT 4.68 10*6/uL (4.10-5.10); RED CELL DISTRI WIDTH 14.1 % (0-14.5); WHITE BLOOD COUNT 8.9 10*3/uL (4.8-10.8)
[2021-06-16 10:41] LABS: ALBUMIN 3.3 gm/dl (3.1-4.5); ALKALINE PHOSPHATASE 91 U/L (45-117); BUN 15 mg/dl (7-24); CHLORIDE 99 mmol/L (98-107); CREATININE 0.71 mg/dL (0.55-1.02); POTASSIUM 4.1 mmol/L (3.5-5.1); SGOT/AST 17 IU/L (3-35); SGPT/ALT 20 U/L (12-78); SODIUM 133 mmol/L (136-145)
[2021-06-16 10:42] LABS: TROPONIN I 0.038 ng/ml (<0.045)
[2021-06-16] MEDS ORDERED: PRAVASTATIN SOD20 MG PO (13:36)
[2021-06-16] MEDS ORDERED: BREZTRI AEROS10.7 GM INH (13:41)
[2021-06-16] MEDS ORDERED: HYDROXYZINE PAM25 M1 PO (13:41)
[2021-06-16 15:04] LABS: ABG BASE EXCESS 15.9 mmol/L (-2.0-2.0); ARTERIAL BLOOD GAS PH 7.312 (7.35-7.45); ARTERIAL BLOOD GAS PO2 68.1 (80-90)
[2021-06-16 17:52] LABS: ABG BASE EXCESS 14.5 mmol/L (-2.0-2.0); ARTERIAL BLOOD GAS PH 7.351 (7.35-7.45); ARTERIAL BLOOD GAS PO2 78.9 (80-90)
[2021-06-17] VITALS: BP 117/71
[2021-06-17 04:00] VITALS: BP 96/48
[2021-06-17 06:16] LABS: HEMATOCRIT 41.7 % (37.0-47.0); LYMPH # 0.3 10*3/uL (1.3-4.4); LYMPH % 4.8 % (27.0-41.0); MEAN CELL VOLUME 95.9 fl (81.0-99.0); MEAN CORPUSCULAR HGB CONC 29.3 g/dl (33.0-37.0); MEAN PLATELET VOLUME 10.1 fl (9.6-12.3); MONO # 0.5 10*3/uL (0.1-1.0); MONO % 7.6 % (3.0-9.0); NEUT # 5.8 10*3/uL (2.3-7.9); NEUT % 87.3 % (47.0-73.0); PLATELET COUNT AUTOMATED 165 10*3/uL (130-400); RED BLOOD COUNT 4.35 10*6/uL (4.10-5.10); RED CELL DISTRI WIDTH 13.8 % (0-14.5); WHITE BLOOD COUNT 6.6 10*3/uL (4.8-10.8)
[2021-06-17 06:20] LABS: CHLORIDE 92 mmol/L (98-107); POTASSIUM 3.5 mmol/L (3.5-5.1); SODIUM 135 mmol/L (136-145)
[2021-06-17 06:32] LABS: ACT PARTIAL THROMBO TIME 29.3 SECONDS (20.0-32.1); INTERNATIONAL NORM RATIO 1.1 (2.0-3.5)
[2021-06-17 06:34] LABS: ALBUMIN 2.7 gm/dl (3.1-4.5); ALKALINE PHOSPHATASE 75 U/L (45-117); CHOLESTEROL 147 mg/dL (<200); CREATININE 0.99 mg/dL (0.55-1.02); LDL CHOLESTEROL 68 mg/dL (9-159); SGOT/AST 13 IU/L (3-35); SGPT/ALT 15 U/L (12-78); THYROID STIM HORMONE (HS) 0.365 uIU/ml (0.358-4.75); TOTAL PROTEIN 6.9 gm/dL (6.4-8.2); TRIGLYCERIDES 56 mg/dl (<150)
[2021-06-17 06:44] LABS: BUN 26 mg/dl (7-24)
[2021-06-17 07:39] LABS: VITAMIN D, 25-HYDROXY 52.1 ng/mL (30-100)
[2021-06-17 08:00] VITALS: BP 141/74
[2021-06-17 09:12] LABS: ABG BASE EXCESS 16.8 mmol/L (-2.0-2.0); ARTERIAL BLOOD GAS PH 7.42 (7.35-7.45); ARTERIAL BLOOD GAS PO2 59.4 (80-90)
[2021-06-17 12:00] VITALS: BP 118/63
[2021-06-17 16:00] VITALS: BP 128/71
[2021-06-17 20:00] VITALS: BP 135/70
[2021-06-18] VITALS: BP 116/66
[2021-06-18 06:14] LABS: HEMATOCRIT 44.2 % (37.0-47.0); MEAN CELL VOLUME 95.1 fl (81.0-99.0); MEAN CORPUSCULAR HGB 28.2 pg (27.0-31.0); MEAN CORPUSCULAR HGB CONC 29.6 g/dl (33.0-37.0); PLATELET COUNT AUTOMATED 193 10*3/uL (130-400); RED BLOOD COUNT 4.65 10*6/uL (4.10-5.10)
[2021-06-18 06:23] LABS: CREATININE 1.15 mg/dL (0.55-1.02)
[2021-06-18 06:53] LABS: PLATELET SUFFICIENCY NORMAL (NORMAL); TOTAL CELLS COUNTED 100 #CELLS
[2021-06-18 08:00] VITALS: BP 132/63
[2021-06-18 08:01] LABS: ABG BASE EXCESS 14.6 mmol/L (-2.0-2.0); ARTERIAL BLOOD GAS PH 7.373 (7.35-7.45); ARTERIAL BLOOD GAS PO2 108.4 (80-90)
[2021-06-18 12:00] VITALS: BP 126/69
[2021-06-18 16:00] VITALS: BP 102/58
[2021-06-18 20:02] VITALS: BP 119/60
[2021-06-18 23:29] VITALS: BP 99/66
[2021-06-19 04:00] VITALS: BP 100/60
[2021-06-19 06:10] LABS: CREATININE 1.58 mg/dL (0.55-1.02); POTASSIUM 4.2 mmol/L (3.5-5.1)
[2021-06-19 08:00] VITALS: BP 114/60
[2021-06-19 12:00] VITALS: BP 110/56
[2021-06-19 16:00] VITALS: BP 118/61
[2021-06-19 20:00] VITALS: BP 122/65
[2021-06-20] VITALS: BP 106/50
[2021-06-20 04:00] VITALS: BP 110/60
[2021-06-20 05:32] LABS: CREATININE 1.24 mg/dL (0.55-1.02); POTASSIUM 3.5 mmol/L (3.5-5.1)
[2021-06-20 08:00] VITALS: BP 114/61
[2021-06-20 12:00] VITALS: BP 160/76
[2021-06-20 16:00] VITALS: BP 114/58
[2021-06-20 20:00] VITALS: BP 114/61
[2021-06-21] VITALS: BP 107/49
[2021-06-21 04:00] VITALS: BP 110/68
[2021-06-21 06:25] LABS: HEMATOCRIT 43.5 % (37.0-47.0); MEAN CELL VOLUME 98.2 fl (81.0-99.0); MEAN CORPUSCULAR HGB 28.4 pg (27.0-31.0); MEAN PLATELET VOLUME 10.3 fl (9.6-12.3); PLATELET COUNT AUTOMATED 181 10*3/uL (130-400); RED BLOOD COUNT 4.43 10*6/uL (4.10-5.10); RED CELL DISTRI WIDTH 14.3 % (0-14.5); WHITE BLOOD COUNT 6.2 10*3/uL (4.8-10.8)
[2021-06-21 06:26] LABS: CREATININE 1.24 mg/dL (0.55-1.02); POTASSIUM 4.1 mmol/L (3.5-5.1)
[2021-06-21 07:35] LABS: ATYPICAL LYMPHS 1 % (0-0); TOTAL CELLS COUNTED 100 #CELLS
[2021-06-21 07:36] LABS: OVALOCYTES FEW; PLATELET SUFFICIENCY NORMAL (NORMAL)
[2021-06-21 08:00] VITALS: BP 130/62
[2021-06-21 12:00] VITALS: BP 112/58
[2021-06-21] MEDS ORDERED: PREDNISONE10 MG PO (12:27)
[2021-06-21] MEDS ORDERED: ZITHROMAX250 MG PO (12:27)
[2021-06-21 16:00] VITALS: BP 111/54; BP 134/68
[2021-06-21] MEDS ORDERED: ASPIRIN ADULT L81 M1 PO (16:14)
== END 2021-06-21 16:00 | disposition home or self-care (01) | DRG 871 ==
LOC: ED 09:43 → EDHOLD 11:16 → 4E 11:16 → ICCU 11:46 → 4E 06-17 18:41
PROVIDERS: Emergency Medicine; Internal Medicine; Internal Medicine Critical Care Medicine; Social Worker Clinical; ADMIT Student in an Organized Health Care Education/Training Program; ATTEND Student in an Organized Health Care Education/Training Program
PROC: 5A09357 Assistance with Respiratory Ventilation, Less than 24 Consecutive Hours, Continuous Positive Airway Pressure (ICD-10-PCS; principal; 2021-06-16)
PROC: 5A09357 Assistance with Respiratory Ventilation, Less than 24 Consecutive Hours, Continuous Positive Airway Pressure (ICD-10-PCS; 2021-06-17)
PROC: 5A09357 Assistance with Respiratory Ventilation, Less than 24 Consecutive Hours, Continuous Positive Airway Pressure (ICD-10-PCS; 2021-06-18)
PROC: 5A09357 Assistance with Respiratory Ventilation, Less than 24 Consecutive Hours, Continuous Positive Airway Pressure (ICD-10-PCS; 2021-06-19)
PROC: 5A09357 Assistance with Respiratory Ventilation, Less than 24 Consecutive Hours, Continuous Positive Airway Pressure (ICD-10-PCS; 2021-06-20)
PROC: 5A09357 Assistance with Respiratory Ventilation, Less than 24 Consecutive Hours, Continuous Positive Airway Pressure (ICD-10-PCS; 2021-06-21)
DX: A41.9 Sepsis, unspecified organism (principal); J96.22 Acute and chronic respiratory failure with hypercapnia; J96.21 Acute and chronic respiratory failure with hypoxia; J15.6 Pneumonia due to other Gram-negative bacteria; J44.1 Chronic obstructive pulmonary disease with (acute) exacerbation; E87.1 Hypo-osmolality and hyponatremia; E87.3 Alkalosis; E44.0 Moderate protein-calorie malnutrition; J44.0 Chronic obstructive pulmonary disease with (acute) lower respiratory infection; J45.51 Severe persistent asthma with (acute) exacerbation; I50.9 Heart failure, unspecified; I48.0 Paroxysmal atrial fibrillation; R73.9 Hyperglycemia, unspecified; R65.20 Severe sepsis without septic shock; F41.1 Generalized anxiety disorder; J20.9 Acute bronchitis, unspecified; I11.0 Hypertensive heart disease with heart failure; Z88.1 Allergy status to other antibiotic agents; Z88.0 Allergy status to penicillin; Z91.030 Bee allergy status; Z91.048 Other nonmedicinal substance allergy status; Z90.49 Acquired absence of other specified parts of digestive tract; Z90.722 Acquired absence of ovaries, bilateral; Z90.710 Acquired absence of both cervix and uterus; Z87.891 Personal history of nicotine dependence; Z82.49 Family history of ischemic heart disease and other diseases of the circulatory system; Z84.89 Family history of other specified conditions; Z86.16 Personal history of COVID-19; Z85.038 Personal history of other malignant neoplasm of large intestine; Z85.118 Personal history of other malignant neoplasm of bronchus and lung; Z85.42 Personal history of malignant neoplasm of other parts of uterus; Z92.3 Personal history of irradiation; Z92.21 Personal history of antineoplastic chemotherapy; Z68.24 Body mass index [BMI] 24.0-24.9, adult

== ENCOUNTER → 2021-07-11 | Outpatient (CLI) | payer MEDICARE, OTHER ==
[~2021-07-11] MED LIST changes: +ASPIRIN ADULT L81 M1 PO; +BREZTRI AEROS10.7 GM INH; +HYDROXYZINE PAM25 M1 PO; +PRAVASTATIN SOD20 MG PO; +ZITHROMAX250 MG PO
== END | disposition home or self-care (01) ==
LOC: RESCLI 00:31
PROVIDERS: ATTEND Internal Medicine Nephrology
DX: J43.2 Centrilobular emphysema (principal); J30.2 Other seasonal allergic rhinitis; E55.9 Vitamin D deficiency, unspecified; Z91.038 Other insect allergy status; F41.9 Anxiety disorder, unspecified; I48.91 Unspecified atrial fibrillation; E78.5 Hyperlipidemia, unspecified; R60.0 Localized edema; Z12.31 Encounter for screening mammogram for malignant neoplasm of breast; Z88.0 Allergy status to penicillin; Z88.8 Allergy status to other drugs, medicaments and biological substances; Z87.891 Personal history of nicotine dependence; Z90.49 Acquired absence of other specified parts of digestive tract; Z98.890 Other specified postprocedural states; Z90.710 Acquired absence of both cervix and uterus; Z79.899 Other long term (current) drug therapy

== ENCOUNTER → 2021-08-10 | Outpatient (CLI) | payer MEDICARE, OTHER | END | disposition home or self-care (01) | LOC: MAMMO 02:16 | PROVIDERS: ATTEND Internal Medicine | DX: Z12.31 Encounter for screening mammogram for malignant neoplasm of breast (principal) ==

== ENCOUNTER → 2021-10-17 | Outpatient (CLI) | payer MEDICARE, OTHER | END | disposition home or self-care (01) | LOC: RESCLI 10-14 08:39 | PROVIDERS: ATTEND Internal Medicine Nephrology | DX: J43.2 Centrilobular emphysema (principal); J30.2 Other seasonal allergic rhinitis; Z91.038 Other insect allergy status; E55.9 Vitamin D deficiency, unspecified; F41.9 Anxiety disorder, unspecified; I48.91 Unspecified atrial fibrillation; E78.5 Hyperlipidemia, unspecified; Z88.0 Allergy status to penicillin; Z88.1 Allergy status to other antibiotic agents; Z79.899 Other long term (current) drug therapy; Z90.49 Acquired absence of other specified parts of digestive tract; Z98.890 Other specified postprocedural states ==

== ENCOUNTER → 2021-11-02 | Outpatient (CLI) | payer MEDICARE, OTHER | END | disposition home or self-care (01) | LOC: CARD 00:07 | PROVIDERS: ATTEND Internal Medicine Cardiovascular Disease | DX: I08.3 Combined rheumatic disorders of mitral, aortic and tricuspid valves (principal); R01.1 Cardiac murmur, unspecified ==

== ENCOUNTER → 2021-12-02 | Outpatient (CLI) | payer MEDICARE, OTHER ==
[2021-12-02 14:32] LABS: BASO % 0.1 % (0.0-1.0); EOS % 0.2 % (1.0-4.0); HEMATOCRIT 35.3 % (37.0-47.0); LYMPH # 0.6 10*3/uL (1.3-4.4); LYMPH % 3.4 % (27.0-41.0); MEAN CELL VOLUME 92.4 fl (81.0-99.0); MEAN CORPUSCULAR HGB CONC 30.3 g/dl (33.0-37.0); MEAN PLATELET VOLUME 9.5 fl (9.6-12.3); MONO # 1.5 10*3/uL (0.1-1.0); NEUT % 87.8 % (47.0-73.0); PLATELET COUNT AUTOMATED 246 10*3/uL (130-400); RED BLOOD COUNT 3.82 10*6/uL (4.10-5.10); RED CELL DISTRI WIDTH 14.2 % (0-14.5); WHITE BLOOD COUNT 18.2 10*3/uL (4.8-10.8)
[2021-12-02 14:50] LABS: ALBUMIN 2.7 gm/dl (3.1-4.5); CREATININE 1.11 mg/dL (0.55-1.02); TOTAL PROTEIN 7.5 gm/dL (6.4-8.2)
[2021-12-02 14:57] LABS: THYROID STIM HORMONE (HS) 1.08 uIU/ml (0.358-4.75)
[2021-12-03 16:07] LABS: t-TRANSGLUTAMINASE (tTG) IGA <2 U/mL (0-3)
== END | disposition home or self-care (01) ==
LOC: LAB 13:44
PROVIDERS: ATTEND Family Medicine
DX: R63.4 Abnormal weight loss (principal); N63.20 Unspecified lump in the left breast, unspecified quadrant; Z87.01 Personal history of pneumonia (recurrent); Z79.899 Other long term (current) drug therapy; Z76.89 Persons encountering health services in other specified circumstances

== ENCOUNTER → 2021-12-05 | Outpatient (CLI) | payer MEDICARE, OTHER | END | disposition home or self-care (01) | LOC: US 00:27 | PROVIDERS: ATTEND Family Medicine | DX: N63.20 Unspecified lump in the left breast, unspecified quadrant (principal); N64.59 Other signs and symptoms in breast ==

== ENCOUNTER → 2021-12-10 | Outpatient (CLI) | payer MEDICARE, OTHER ==
[2021-12-10 13:57] LABS: HEMATOCRIT 33.4 % (37.0-47.0); MEAN CELL VOLUME 94.6 fl (81.0-99.0); MEAN CORPUSCULAR HGB 27.8 pg (27.0-31.0); MEAN CORPUSCULAR HGB CONC 29.3 g/dl (33.0-37.0); MEAN PLATELET VOLUME 9.4 fl (9.6-12.3); PLATELET COUNT AUTOMATED 263 10*3/uL (130-400); RED BLOOD COUNT 3.53 10*6/uL (4.10-5.10); RED CELL DISTRI WIDTH 14.3 % (0-14.5); WHITE BLOOD COUNT 16.6 10*3/uL (4.8-10.8)
[2021-12-10 14:30] LABS: PLATELET SUFFICIENCY NORMAL (NORMAL); TOTAL CELLS COUNTED 100 #CELLS
== END ==
LOC: LAB 13:34
PROVIDERS: ATTEND Family Medicine
DX: E87.6 Hypokalemia (principal); D64.9 Anemia, unspecified; D72.829 Elevated white blood cell count, unspecified

== ENCOUNTER → 2022-02-17 | Outpatient (CLI) | payer MEDICARE, OTHER | END | disposition home or self-care (01) | LOC: RAD 10:02 | PROVIDERS: ATTEND Nurse Practitioner Adult Health | DX: R06.02 Shortness of breath (principal) ==

== ENCOUNTER 2022-04-17 18:16 | Emergency (ER) | payer MEDICARE, OTHER ==
[~2022-04-17] VITALS: Wt 61.7 kg
[2022-04-17 19:02] LABS: BASO % 0.2 % (0.0-1.0); EOS % 0.2 % (1.0-4.0); LYMPH # 0.5 10*3/uL (1.3-4.4); MEAN CELL VOLUME 101.9 fl (81.0-99.0); MEAN CORPUSCULAR HGB 28.7 pg (27.0-31.0); MEAN CORPUSCULAR HGB CONC 28.2 g/dl (33.0-37.0); MEAN PLATELET VOLUME 9.5 fl (9.6-12.3); MONO # 0.8 10*3/uL (0.1-1.0); MONO % 8.5 % (3.0-9.0); NEUT # 8.3 10*3/uL (2.3-7.9); NEUT % 85.4 % (47.0-73.0); PLATELET COUNT AUTOMATED 161 10*3/uL (130-400); RED BLOOD COUNT 3.73 10*6/uL (4.10-5.10); RED CELL DISTRI WIDTH 15.2 % (0-14.5); WHITE BLOOD COUNT 9.7 10*3/uL (4.8-10.8)
[2022-04-17 19:13] LABS: INTERNATIONAL NORM RATIO 1.1 (2.0-3.5)
[2022-04-17 19:21] LABS: ALKALINE PHOSPHATASE 91 U/L (45-117); BUN 17 mg/dl (7-24); CHLORIDE 103 mmol/L (98-107); CREATININE 1.02 mg/dL (0.55-1.02); LIPASE 68 U/L (73-393); POTASSIUM 4.9 mmol/L (3.5-5.1); SGOT/AST 14 IU/L (3-35); SGPT/ALT 14 U/L (12-78); SODIUM 139 mmol/L (136-145); TOTAL PROTEIN 8.9 gm/dL (6.4-8.2)
[2022-04-17 20:20] LABS: ABG BASE EXCESS 9.6 mmol/L (-2.0-2.0); ARTERIAL BLOOD GAS PH 7.265 (7.35-7.45)
[2022-04-17] MEDS ORDERED: ALPRAZOLAM0.25 M2 PO (20:43)
[2022-04-17] MEDS ORDERED: CALCIUM + D SO1 EACH PO (20:45)
[2022-04-17] MEDS ORDERED: VITAMIN D350 MCG PO (20:46)
[2022-04-18 03:39] VITALS: BP 110/59
== END 2022-04-18 05:43 | disposition short-term general hospital (02) ==
LOC: ED 18:16
PROVIDERS: Emergency Medicine
DX: J96.00 Acute respiratory failure, unspecified whether with hypoxia or hypercapnia (principal); Z88.0 Allergy status to penicillin; Z91.030 Bee allergy status; Z88.1 Allergy status to other antibiotic agents; Z79.899 Other long term (current) drug therapy; Z90.710 Acquired absence of both cervix and uterus; Z90.49 Acquired absence of other specified parts of digestive tract; Z90.89 Acquired absence of other organs; Z98.890 Other specified postprocedural states; Z87.891 Personal history of nicotine dependence